=== PATIENT | female | born 2000 | race Hispanic/Latino ===

== ENCOUNTER 2024-04-27 17:55 | Emergency (ER) | payer OTHER ==
[2024-04-27 19:05] LABS: CAUTI Indications for Culture Dysuria,urgency,freq; Clarity Clear (Clear)
[2024-04-27 19:15] LABS: Bacteria/HPF 1+ HPF (None Seen); Leukocyte Unable to Interpret Leu/uL (Negative); Nitrite Unable to Interpret (Negative); Protein, Urine (Dipstick) Unable to Interpret mg/dL (Neg-Trace)
[2024-04-27 19:16] LABS: Bilirubin Unable to Interpret (Negative); Blood, Urine Unable to Interpret (Negative); Glucose, Urine (Dipstick) Unable to Interpret mg/dL (Negative); Ketone, Urine Unable to Interpret mg/dL (Negative); Urobilinogen UNABLE TO INTERPRET mg/dL (Less than 2)
[2024-04-27 19:20] LABS: Yeast-Budding Rare HPF (None Seen); Yeast-Hyphae Rare HPF (None Seen)
[2024-04-27 19:23] LABS: RBC/HPF 0-3 HPF (0-3); Specific Gravity, Urine 1.022 (1.002-1.036); pH, Urine 7.1 (5.0-9.0)
[2024-04-27 19:24] LABS: Urine Culture Reflex Yes Yes; WBC/HPF 21-50 HPF (0-3)
== END 2024-04-27 20:16 | disposition home or self-care (01) ==
LOC: ERS 17:55
DX: B37.31 Acute candidiasis of vulva and vagina (principal); N39.0 Urinary tract infection, site not specified; F17.290 Nicotine dependence, other tobacco product, uncomplicated
CPT/HCPCS: 81001; 87086; 87480; 87510; 87660; 99283